=== PATIENT | male | born 1980 ===

== ENCOUNTER 2017-10-02 23:16 | Emergency (ER) | payer OTHER ==
[2017-10-02 23:32] VITALS: BP 124/70; RESP 20
[2017-10-03 00:59] VITALS: PULSE 106; TEMP 101; O2SAT 100
--- NOTE | 2017-10-03 01:40 | C.PDOC ---
History Of Present Illness Pt presents to ER with c/o of cough productive of yellow phlegm x 4 days with chest congestion and fever starting today. Pt reports past h/o of pneumonia and is concerned of recurrence. Denies SOB, CP, recent travel or sick contact. Pt took over th counter Mucinex with no relief. Time Seen by Provider: 10/02/17 23:36 Chief Complaint (Nursing): Fever History Per: Patient History/Exam Limitations: no limitations Current Symptoms Are (Timing): Still Present Location Of Pain: Diffuse Myalgias Sick Contacts (Context): None Associated Symptoms: Fever, Cough, Sputum. denies: Sore Throat, Neck Pain, Nasal Congestion, Vomiting Ear Symptoms: Bilateral: None Severity: Moderate Recent travel outside of the [place]: No Past Medical History Vital Signs: Last Vital Signs Temp 101 F H 10/03/17 00:58 Pulse 106 H 10/03/17 00:58 Resp 20 10/03/17 00:58 BP 124/70 10/02/17 23:30 Pulse Ox 100 10/03/17 01:41 - Medical History PMH: No Chronic Diseases, Pneumonia Family History: States: Unknown Family Hx - Social History Hx Alcohol Use: Yes Hx Substance Use: No - Immunization History Hx Tetanus Toxoid Vaccination: No Hx Influenza Vaccination: No Hx Pneumococcal Vaccination: No Review Of Systems Constitutional: Positive for: Fever ENT: Negative for: Nose Discharge, Throat Pain Respiratory: Positive for: Cough. Negative for: Shortness of Breath, Pleuritic Pain Skin: Negative for: Rash Physical Exam - Physical Exam Appears: Well, No Acute Distress Eye(s): bilateral: Normal Inspection, EOMI Ear(s): Bilateral: Normal Nose: Normal, No Discharge Oral Mucosa: Moist Neck: Normal, Supple Chest: Symmetrical, No Tenderness Cardiovascular: Rhythm Regular Respiratory: Normal Breath Sounds, No Rales, No Rhonchi Neurological/Psych: Oriented x3 Gait: Steady ED Course And Treatment O2 Sat by Pulse Oximetry: 100 Pulse Ox Interpretation: Normal - Radiology CXR: Interpreted by Me, Viewed By Me CXR Interpretation: Yes: No Acute Disease. No: Infiltrates Progress Note: PT IN NAD, RECEIVED ANTIPYRETICS ON ARRIVAL. CXR REVIEWED AND D/ W PT AND WILL BE DC WITH RX , PMD FOLLOW UP AND RETURNN PRECAUTIONS DISCUSSED Disposition Counseled Patient/Family Regarding: Diagnosis, Need For Followup, Rx Given - Disposition Referrals: PMD, private doctor [Other] Disposition: HOME/ ROUTINE Disposition Time: 01:38 Condition: STABLE Additional Instructions: Increase PO fluids Take meds as directed Return to ER if worse Prescriptions: Azithromycin [Zithromax] 250 mg PO DAILY #6 tab Benzonatate [Tessalon Perles] 100 mg PO TID #20 sgl Ibuprofen [Motrin] 600 mg PO Q6H #20 tab Instructions: Upper Respiratory Infection (ED) Forms: [facility] (Kyr[place]z), Work Excuse - Clinical Impression Clinical Impression: Upper respiratory infection
--- NOTE | 2017-10-03 08:43 | RAD ---
HISTORY: cough, fever COMPARISON: No prior. TECHNIQUE: Chest PA and lateral FINDINGS: LUNGS: No focal infiltrate or effusion. PLEURA: No significant pleural effusion identified. No pneumothorax apparent. CARDIOVASCULAR: Normal. OSSEOUS STRUCTURES: No significant abnormalities. VISUALIZED UPPER ABDOMEN: Normal. OTHER FINDINGS: None. IMPRESSION: No active disease.
== END 2017-10-03 01:44 | disposition home or self-care (01) ==
LOC: C.ER 23:16
DX: J06.9 Acute upper respiratory infection, unspecified (principal)